=== PATIENT | male | born 1970 | race Caucasian/White ===

== ENCOUNTER 2018-10-07 10:45 | Outpatient (CLI) | payer BC ==
[~2018-10-07] VITALS: Ht 190.5 cm; Wt 145.1 kg
[2018-10-07] MEDS ORDERED: TAMS0.4C98 PO (10:49)
[2018-10-07] MEDS ORDERED: METH5TAB2 PO (10:49)
[2018-10-07] MEDS ORDERED: GBPN600T PO (10:49)
[2018-10-07] MEDS ORDERED: INSU100I10 SQ (10:49)
[2018-10-07] MEDS ORDERED: METF-479 PO (10:49)
[2018-10-07] MEDS ORDERED: DIPH25CA79 PO (10:49)
[2018-10-07] MEDS ORDERED: INSU100V SQ (10:49)
[2018-10-07] MEDS ORDERED: IMAT400T PO (10:49)
[2018-10-07] MEDS ORDERED: ASPI-586 PO (10:49)
[2018-10-07] MEDS ORDERED: AMLO5TAB9 PO (10:49)
[2018-10-07] MEDS ORDERED: LOSA100T57 PO (10:49)
[2018-10-07] MEDS ORDERED: VENL75CA93 PO (10:49)
[2018-10-07] MEDS ORDERED: OXYC10TA7 PO (10:49)
[2018-10-07] MEDS ORDERED: CIME200T86 PO (10:49)
[2018-10-07] MEDS ORDERED: CROM20SO2 PO (10:49)
[2018-10-07] MEDS ORDERED: ATOR20TA66 PO (10:49)
[2018-10-07] MEDS ORDERED: AMIT25TA9 PO (10:49)
[2018-10-07] MEDS ORDERED: ESZO3TAB30 PO (10:49)
[2018-10-07] MEDS ORDERED: OMEP20CA12 PO (10:49)
[2018-10-07] MEDS ORDERED: TIZA4TAB11 PO (10:49)
[2018-10-07] MEDS ORDERED: FLUT9.9S NSEACH (10:49)
[2018-10-07] MEDS ORDERED: CETI10TA17 PO (10:49)
== END 2018-10-07 11:08 | disposition home or self-care (01) ==
LOC: PREOP 10:45
PROVIDERS: ATTEND Orthopaedic Surgery
DX: Z01.818 Encounter for other preprocedural examination (principal)

== ENCOUNTER 2018-10-10 06:29 | Day surgery (SDC) | payer BC ==
[~2018-10-10] VITALS: Ht 190.5 cm; Wt 147.1 kg
[~2018-10-10 06:29] MED LIST: AMIT25TA9 PO; AMLO5TAB9 PO; ASPI-586 PO; ATOR20TA66 PO; CETI10TA17 PO; CIME200T86 PO; CROM20SO2 PO; DIPH25CA79 PO; ESZO3TAB30 PO; FLUT9.9S NSEACH; GBPN600T PO; IMAT400T PO; INSU100I10 SQ; INSU100V SQ; LOSA100T57 PO; METF-479 PO; METH5TAB2 PO; OMEP20CA12 PO; OXYC10TA7 PO; TAMS0.4C98 PO; TIZA4TAB11 PO; VENL75CA93 PO
[2018-10-10 06:35] VITALS: BP 134/81
[2018-10-10] MEDS ORDERED: ceFAZolin 2 GM IV Premixed 50 ML IV ONE (07:00)
[2018-10-10] MEDS ORDERED: LACTATED RINGERS 1,000 ML IV PRN (07:00)
[2018-10-10] MEDS ORDERED: MIDAZOLAM 2 MG/2 ML (VERSED) VIAL ONE ×3 (07:02→07:41)
[2018-10-10] MEDS ORDERED: fentaNYL INJECTION 100 MCG/2 ML AMP ONE (07:02)
[2018-10-10] MEDS ORDERED: ONDANSETRON 4 MG/2 ML (SDV) Z0FRAN ONE (07:02)
[2018-10-10] MEDS ORDERED: proPOfol 200 MG/20 ML (DIPRIVAN) VIAL IV ONE (07:40)
[2018-10-10] MEDS ORDERED: BACITRACIN 100,000 UNIT/NS 1000 ML POUR BOTTLE IR ONE ×2 (07:45)
[2018-10-10] MEDS ORDERED: BUPIVACAINE 0.25% 30 ML (SENSORCAINE) VIAL ONE (08:12)
--- NOTE | 2018-10-10 08:50 | Discharge Inst-Simple/Standard ---
Discharge Inst-Standard Patient Instructions/Follow Up Plan of Care/Instructions/FU: follow up 2 weeks for incision check keep incision covered clean and dry Activity as Tolerated: Yes Discharge Diet: ADA Diet Return to [facility] For: fever chills chest pain shortness of breath АНДРЕЙ LUNA Oct 10, 2018 08:50
[2018-10-10] MEDS ORDERED: MEPERIDINE (DEMEROL) INJ 50 MG/ML IVP ONE (09:15)
[2018-10-10] MEDS ORDERED: morphine INJ 10 MG/ML 1ML (SYR OR VIAL) IVP ONE (09:15)
[2018-10-10] MEDS ORDERED: ONDANSETRON 4 MG/2 ML (SDV) Z0FRAN IVP PRN (09:15)
[2018-10-10 09:35] VITALS: BP 118/73
[2018-10-10 10:04] VITALS: BP 110/81
--- NOTE | 2018-10-10 13:12 | Anesthesia-General Post-Op ---
MAC Patient Condition Mental Status/LOC: Same as Preop Cardiovascular: Satisfactory Nausea/Vomiting: Absent Respiratory: Satisfactory Pain: Controlled Complications: Absent Post Op Complications Complications None Follow Up Care/Instructions Patient Instructions None needed. Anesthesiology Discharge Order Discharge Order Patient is doing well, no complaints, stable vital signs, no apparent adverse anesthesia problems. No complications reported per nursing. PRABHU OJEDA CRNA Oct 10, 2018 13:12
--- NOTE | 2018-10-11 07:55 | OPERATIVE REPORT ---
DATE OF SERVICE: 10/10/2018 SURGEON: Man Oseguera DO. PEDIATRIC NURSE: JYOTSNA Soria. This is a medically necessary procedure. Assistance was necessary for retraction of vital neurovascular structures. Without an assistant paralegal, the procedure would not be possible. PREOPERATIVE DIAGNOSIS: Failure of internal hardware. POSTOPERATIVE DIAGNOSIS: Failure of internal hardware. PROCEDURE PERFORMED: Change out of pulse generator battery. COMPLICATIONS: None. DRAINS PLACED: None. ESTIMATED BLOOD LOSS: Minimal. ANESTHESIA: Monitored anesthesia care with IV sedation. COMPLICATIONS: None. HISTORY OF PRESENT ILLNESS: The patient is a very pleasant 48-year-old gentleman, who presented to me with prior spinal cord stimulator. He actually had a pulse generator on the left and the right. The right one quit working as it had reached end of life. He did wish to have this replaced. He understood the risks and benefits. DESCRIPTION OF PROCEDURE: The patient was identified by name on wrist band in the preoperative holding area. His operative site was signed and consent was signed. SCDs were placed. Antibiotics were started. He was taken to the operating room theater and placed on to the operating table in the prone position. He was given light IV sedation. We prepped and draped the patient. I infiltrated the skin and soft tissue with 0.5% Marcaine with epinephrine and made an incision over the old scar line and dissected my way down to the pulse generator, which I then removed. I detached the leads. I obtained a new [employer] pulse generator. I reattached and finally tightened those leads and buried it back into the subcutaneous tissue. I irrigated the wound thoroughly, maintained hemostasis and closed the wound utilizing 0 Vicryl followed by 2-0 Vicryl followed by running 3-0 subcuticular stitch. I applied dressings and I took the patient in supine position in the PACU where he awoke without incident and he tolerated the procedure well. PLAN: Plan at this time is to discharge the patient today and I will see him back in two weeks. He knows to keep his wound clean and dry and change the dressings as needed. Job ID: [id number] DocumentID: [id number] Dictated Date: 10/11/2018 07:20:16 [employer] Date: 10/11/2018 07:54:39 Dictated By: MAN OSEGUERA DO
== END 2018-10-10 10:16 | disposition home or self-care (01) ==
LOC: SDC 06:29
PROVIDERS: ATTEND Orthopaedic Surgery
DX: T85.193A Other mechanical complication of implanted electronic neurostimulator, generator, initial encounter (principal); I10 Essential (primary) hypertension; E78.5 Hyperlipidemia, unspecified; G47.33 Obstructive sleep apnea (adult) (pediatric); E11.40 Type 2 diabetes mellitus with diabetic neuropathy, unspecified; K21.9 Gastro-esophageal reflux disease without esophagitis; F32.9 Major depressive disorder, single episode, unspecified; F41.9 Anxiety disorder, unspecified; Z87.891 Personal history of nicotine dependence; Z79.4 Long term (current) use of insulin; Z79.82 Long term (current) use of aspirin; Z79.899 Other long term (current) drug therapy
CPT/HCPCS: 82962; 87081

== ENCOUNTER 2019-05-11 14:00 | Outpatient (CLI) | payer BC ==
[~2019-05-11 14:00] MED LIST changes: -OMEP20CA12 PO; +OMEP20CA13 PO
== END 2019-05-11 14:04 | disposition home or self-care (01) ==
LOC: PREOP 14:00
PROVIDERS: ATTEND Orthopaedic Surgery
DX: Z01.818 Encounter for other preprocedural examination (principal)

== ENCOUNTER 2019-05-15 05:49 | Day surgery (SDC) | payer BC ==
[2019-05-15] VITALS (9 sets, daily range): BP systolic 115–160; BP diastolic 74–91
[~2019-05-15] VITALS: Ht 190.5 cm; Wt 154.6 kg
[2019-05-15] MEDS ORDERED: LACTATED RINGERS 1,000 ML IV PRN (06:13)
[2019-05-15] MEDS ORDERED: ceFAZolin 2 GM IV Premixed 50 ML IV ONE (06:30)
[2019-05-15] MEDS ORDERED: CATHETER FLUSH 10 ML SYR IV PRN (06:45)
[2019-05-15] MEDS ORDERED: GENTAMICIN 40 MG/ML 2 ML INJ SDV ONE (06:54)
[2019-05-15] MEDS ORDERED: VANCOMYCIN 1000 MG/VIAL ONE (06:54)
[2019-05-15] MEDS ORDERED: BACITRACIN OINTMENT 28 GM TUBE ONE (06:54)
[2019-05-15] MEDS ORDERED: BUP/EPI 0.5% 1:200,000 (SENSORCAINE) 30 ML VIAL ONE (06:54)
[2019-05-15] MEDS ORDERED: proPOfol 200 MG/20 ML (DIPRIVAN) VIAL IV ONE (07:02)
[2019-05-15] MEDS ORDERED: LIDOCAINE PF 2% 5 ML (XYLOCAINE) VIAL ONE (07:02)
[2019-05-15] MEDS ORDERED: SEVOFLURANE (ULTANE) 15 ML INHAL SOLN ONE ×3 (07:02→08:26)
[2019-05-15] MEDS ORDERED: fentaNYL INJECTION 100 MCG/2 ML AMP ONE (07:03)
[2019-05-15] MEDS ORDERED: SUCCINYLCHOLINE INJ 100 MG/5 ML SYR ONE (07:07)
[2019-05-15] MEDS ORDERED: MIDAZOLAM 2 MG/2 ML (VERSED) VIAL ONE (07:07)
[2019-05-15] MEDS ORDERED: DEXAMETHASONE 10 MG/ML (DECADRON) 1 ML VIAL ONE (07:07)
[2019-05-15] MEDS ORDERED: ROCURONIUM 10 MG/ML 5 ML SYRINGE IV ONE (07:07)
[2019-05-15] MEDS ORDERED: ONDANSETRON 4 MG/2 ML (SDV) Z0FRAN ONE (07:07)
[2019-05-15] MEDS ORDERED: CALC-140 PO (08:09)
[2019-05-15] MEDS ORDERED: TRAZ-190 PO (08:12)
[2019-05-15] MEDS ORDERED: EPIN0.3P2 IJ (08:12)
[2019-05-15] MEDS ORDERED: FAMO20TA3 PO (08:13)
[2019-05-15] MEDS ORDERED: MULT-890 PO (08:14)
--- NOTE | 2019-05-15 08:35 | Discharge Instructions ---
Discharge Instructions Reconcile Patient Problems Problems Reviewed?: Yes Patient Instructions Goal/Follow Up Appt: follow up in clinic in 2 weeks keep incision covered clean an ddry Return to [facility] For: fever chills or incisional drainage Activity & Diet Discharge Diet: ADA Diet АНДРЕЙ LUNA May 15, 2019 08:35
[2019-05-15] MEDS ORDERED: RT-ALBUTEROL HFA (VENTOLIN) PER PUFF IH ONE (08:46)
--- NOTE | 2019-05-15 10:34 | Anesthesia-General Post-Op ---
General Patient Condition Mental Status/LOC: Same as Preop Cardiovascular: Satisfactory Nausea/Vomiting: Absent Respiratory: Satisfactory Pain: Controlled Complications: Absent Post Op Complications Complications None Follow Up Care/Instructions Patient Instructions None needed. Anesthesia/Patient Condition Patient Condition Patient was seen in [facility] and is doing well, no complaints, stable vital signs, no apparent adverse anesthesia problems. He checked his blood glucose and it is 107 mg/dL post-op. We will be available if needed. SIRENA ALVAREZ DO May 15, 2019 10:34
--- NOTE | 2019-05-15 17:26 | OPERATIVE REPORT ---
DATE OF SERVICE: 05/15/2019 SURGEON: Man Oseguera DO PER DIEM PHYSICAL THERAPIST: None. COMPLICATIONS: None. SPECIMEN SENT: None. DRAINS PLACED: None. ESTIMATED BLOOD LOSS: Minimal. ANESTHESIA: General endotracheal tube anesthesia with local anesthetic. PREOPERATIVE DIAGNOSES: 1. Failure of internal hardware. 2. Neuropathic pain syndrome. POSTOPERATIVE DIAGNOSES: 1. Failure of internal hardware. 2. Neuropathic pain syndrome. PROCEDURE PERFORMED: Removal and replacement of pulse generator for the thoracic spinal cord stimulator. HISTORY OF PRESENT ILLNESS: The patient is a very pleasant 49-year-old gentleman who presented to me with a pulse generator. He did wish to have this replaced. He understood the risks and benefits of the surgery. DESCRIPTION OF PROCEDURE: The patient was identified by name on wrist band in the preoperative holding area and his operative site was signed, consent was signed. SCDs were placed. Antibiotics were started. He was taken to the operating theater and placed under general endotracheal tube anesthesia and then transferred to the operating room table in the prone position. He was prepped and draped in the usual sterile fashion. A formal timeout was conducted. At this point, an incision was then made over the scar line on the right side. While there was a scar on the left, there was no palpable battery. I dissected my way down identifying the pulse generator. I then removed the pulse generator. At this point, the rep realized that this pulse generator was not the one, therefore I reconnected it, buried it back into the wound, closed the wound. We reprepped and draped. I located the other scar on the left side. Please note, there was no palpable pulse generator, but based on the rep's assurance, we made an incision, dissected our way down and then found a pulse generator buried deep within the buttocks. This apparently was the pulse generator, so I removed it and replaced it with a new [employer] pulse generator, finally tightened it. We checked the leads on both the batteries and they were appropriately connected. Therefore, I irrigated the wound, maintained hemostasis and I buried that pulse generator deep into the soft tissue pocket and I closed it in a layered fashion utilizing #0 Vicryl followed by 2-0 Vicryl followed by fabrice for skin. I applied dressings and took the patient in supine position to the PACU where he awoke without incident. He tolerated the procedure well. PLAN: At this time is to discharge the patient today. He knows to keep his wounds clean and dry, change the dressings daily. I will see him back in 2 weeks. Job ID: [id number] DocumentID: [id number] Dictated Date: 05/15/2019 14:06:48 [employer] Date: 05/15/2019 17:25:07 Dictated By: MAN OSEGUERA DO MTDMaria Isabel
== END 2019-05-15 11:00 | disposition home or self-care (01) ==
LOC: SDC 05:49
PROVIDERS: ATTEND Orthopaedic Surgery
DX: T85.695A Other mechanical complication of other nervous system device, implant or graft, initial encounter (principal); M79.2 Neuralgia and neuritis, unspecified; I10 Essential (primary) hypertension; K21.9 Gastro-esophageal reflux disease without esophagitis; G47.33 Obstructive sleep apnea (adult) (pediatric); E78.5 Hyperlipidemia, unspecified; E11.40 Type 2 diabetes mellitus with diabetic neuropathy, unspecified; E66.01 Morbid (severe) obesity due to excess calories; Z99.89 Dependence on other enabling machines and devices; Z68.41 Body mass index [BMI] 40.0-44.9, adult; Z79.899 Other long term (current) drug therapy; Z79.84 Long term (current) use of oral hypoglycemic drugs; Z79.82 Long term (current) use of aspirin; Z79.891 Long term (current) use of opiate analgesic
CPT/HCPCS: 87081